=== PATIENT | female | born 1995 | race Two or more races ===

== ENCOUNTER 2021-06-27 07:44 | Emergency (ER) | payer OTHER ==
[~2021-06-27] VITALS: Ht 160 cm; Wt 92.1 kg
[2021-06-27] MEDS ORDERED: ALL DAY ALLERGY10 M3 PO (11:37)
[2021-06-27] MEDS ORDERED: MEDROLPACK PO (11:37)
[2021-06-27] MEDS ORDERED: ZITHROMAX500 MG PO (11:37)
== END 2021-06-27 12:24 | disposition home or self-care (01) ==
LOC: ER 07:44
DX: J35.01 Chronic tonsillitis (principal); L50.0 Allergic urticaria; Z11.52 Encounter for screening for COVID-19

== ENCOUNTER 2023-06-25 05:05 | Emergency (ER) | payer OTHER ==
[~2023-06-25] VITALS: Ht 160 cm; Wt 90.3 kg
[~2023-06-25 05:05] MED LIST: ALL DAY ALLERGY10 M3 PO; MEDROLPACK PO; ZITHROMAX500 MG PO
== END 2023-06-25 08:40 | disposition home or self-care (01) ==
LOC: ER 05:07
DX: J02.0 Streptococcal pharyngitis (principal)

== ENCOUNTER → 2024-10-01 | Emergency (ER) | payer OTHER ==
[~2024-10-01] VITALS: Ht 160 cm; Wt 93.0 kg
[2024-10-01 08:48] LABS: HEMATOCRIT 34.7 % (36.0-45.00); HEMOGLOBIN 11.4 g/dL (12.0-15.00); MEAN CELL VOLUME 83.6 fL (80.00-100.00); MEAN CORPUSCULAR HEMOGLOBIN 27.4 pg (27.00-32.0); MEAN CORPUSCULAR HGB CONC 32.7 g/dl (32.0-36.0); PLATELET COUNT 359 K/uL (150-450); RED BLOOD COUNT 4.15 M/uL (4.00-6.00); RED CELL DISTRIBUTION WIDTH 14.6 % (11.5-14.5)
[2024-10-01 09:54] LABS: CALCIUM 9.2 mg/dL (8.5-10.1); CREATININE SERUM 0.78 mg/dL (0.55-1.02); GFR 88.59; POTASSIUM 4.67 mEq/L (3.5-5.1)
[2024-10-01 09:58] LABS: COVID-19 AG NEGATIVE (NEGATIVE); INFLUENZA A AG NEGATIVE (NEGATIVE)
== END | disposition home or self-care (01) ==
LOC: ER 07:36
DX: B34.9 Viral infection, unspecified (principal); R53.83 Other fatigue; Z20.822 Contact with and (suspected) exposure to COVID-19